=== PATIENT | female | born 1965 | race Caucasian/White ===

== ENCOUNTER → 2016-10-02 | Outpatient (CLI) | payer OTHER ==
[~2016-10-02] MED LIST: BUPR-79 PO; CALCTAB7 PO; COEN1CAP7 PO; FROV2.5T5 PO; LACTCAP3 PO; MULT-513 PO; NYSTCRE32 TD; RIZA10TA19 PO; TRAM-10 PO; [UNRECOGNIZED DRUG - OTHER] PO
[2016-10-02 11:07] LABS: CHOLESTEROL/HDL RATIO 2.4
== END | disposition home or self-care (01) ==
LOC: C.LABBC 09:08
PROVIDERS: ATTEND Family Medicine
DX: Z13.1 Encounter for screening for diabetes mellitus (principal); Z13.220 Encounter for screening for lipoid disorders

== ENCOUNTER → 2016-10-29 | Outpatient (CLI) | payer OTHER ==
--- NOTE | 2016-10-29 08:33 | DIAGNOSTIC IMAGING REPORT ---
RIGHT THUMB RADIOGRAPHS CLINICAL HISTORY: Right thumb pain. COMPARISON: None FINDINGS: Alignment of the right thumb is anatomic. No fracture or suspicious osseous lesion is identified. No erosions are identified. There is mild joint space narrowing and osteophytosis of the right first carpometacarpal joint. There is also mild osteoarthritis of the right first metacarpophalangeal joint. Note is made of a 5 mm bony excrescence arising from the lateral aspect of the distal right radius. IMPRESSION: 1. Mild osteoarthritis of the carpometacarpal and metacarpophalangeal joints of the right thumb. 2. No acute fracture. 3. 5 mm bony excrescence arising from the lateral aspect of the distal right radius which could reflect sequela of old injury or a benign osteochondroma. Electronically signed by: Mateo Gould M.D. 10/29/2016 8:31 AM Dictated Date/Time: 10/29/2016 8:27 AM
--- NOTE | 2016-10-29 08:34 | DIAGNOSTIC IMAGING REPORT ---
LEFT ELBOW 3 VIEWS CLINICAL HISTORY: Elbow pain. Degenerative joint disease. FINDINGS: 3 views of the left elbow are obtained. No prior studies are available for comparison at the time of dictation. The skeletal structures are osteopenic. No fracture is seen. A joint effusion is noted. Bony overgrowth with large osteophytes is seen along the anterior and posterior aspect of the joint space on the lateral view. There is bony fusion of the proximal radius and ulna. Large spurs arise from the radial head. Spurring is also seen along both the medial and lateral aspect of the joint space. The overlying soft tissues are within normal limits. IMPRESSION: 1. Osteopenia, arthritic change, and bony fusion of the proximal radius and ulna as above. 2. No acute fracture is identified. 3. There is a joint effusion. This is likely on a degenerative basis if there is no history of trauma. Electronically signed by: Matthew Royal M.D. 10/29/2016 8:32 AM Dictated Date/Time: 10/29/2016 8:30 AM
== END | disposition home or self-care (01) ==
LOC: C.RAD 08:10
PROVIDERS: ATTEND Orthopaedic Surgery Sports Medicine
DX: M25.522 Pain in left elbow (principal); M79.645 Pain in left finger(s)

== ENCOUNTER → 2016-12-15 | Outpatient (CLI) | payer OTHER ==
--- NOTE | 2016-12-15 15:49 | DIAGNOSTIC IMAGING REPORT ---
CERVICAL WITHOUT CONTRAST HISTORY: Cervical radiculopathy CERVICAL SPINE PAIN TECHNIQUE: Multiplanar multisequence MRI of the cervical spine was performed without the use of contrast. COMPARISON STUDY: 01/15/2013 FINDINGS: Moderate reversal of the normal cervical curvature consistent with muscular spasm. Degenerative disc changes throughout considered similar. Persistent minimal grade 1 anterolisthesis C4 on C5 as estimated at 3 mm. This is unchanged. Sagittal images again suggest posterior bulging disc at C3-C4, C5-C6, and C6-C7. Signal characteristics of the cervical cord remain unremarkable. C2-C3: No significant central canal or neural foraminal narrowing. No change in the prior study C3-C4: Broad-based bulging disc showing contact with the anterior cervical cord. This is unchanged. Moderate multifactorial narrowing of the left as well as right neuroforamina at this site considered slightly progressive from the prior exam. C4-C5: Broad-based is bulge similar compared to the prior study. Moderate osteophytic narrowing of the left and to lesser extent right neural foramina also unchanged. C5-C6: Mild broad-based bulging disc/mild broad-based disc herniation similar compared to the prior study. Minimal impact anterior cervical cord. Significant narrowing of the neuroforamina bilaterally similar to and are slightly progressive from the prior exam. C6-C7: Broad-based central disc herniation with mild impact anterior cervical cord. Mild narrowing left neuroforamina. This level is unchanged from the prior study. C7-T1: No significant central canal or neural foraminal narrowing. No change in the prior exam. IMPRESSION: 1. Degenerative disc change throughout the entire cervical region slightly progressive from the prior study. 2. Persistent reversal of the normal cervical curvature consistent with muscular spasm. 3. Unchanged grade 1 anterolisthesis C4 on C5 felt to be secondary to degenerative changes of posterior elements. 4. Broad-based bulging disc C3-C4 with mild narrowing of the neuroforamina bilaterally. This is slightly progressive from the prior exam. 5. Broad-based bulging discs/mild broad-based disc herniations C4-C5 and C5-C6 similar compared to the prior study. Narrowing of the neuroforamina slightly progressive at both levels compared to the prior study. 6. Broad-based central disc herniation C6-C7 unchanged from the prior study The above report was generated using voice recognition software. It may contain grammatical, syntax or spelling errors. Electronically signed by: Cihdi Rangel M.D. 12/15/2016 3:48 PM Dictated Date/Time: 12/15/2016 3:37 PM
== END | disposition home or self-care (01) ==
LOC: C.MRI 14:30
PROVIDERS: ATTEND Orthopaedic Surgery Orthopaedic Surgery of the Spine
DX: M50.31 Other cervical disc degeneration, high cervical region (principal); M50.321 Other cervical disc degeneration at C4-C5 level; M50.322 Other cervical disc degeneration at C5-C6 level; M50.323 Other cervical disc degeneration at C6-C7 level; M43.12 Spondylolisthesis, cervical region; M50.21 Other cervical disc displacement, high cervical region; M50.221 Other cervical disc displacement at C4-C5 level; M50.222 Other cervical disc displacement at C5-C6 level; M50.223 Other cervical disc displacement at C6-C7 level

== ENCOUNTER → 2017-09-14 | Outpatient (CLI) | payer OTHER | END | disposition home or self-care (01) | LOC: C.PAPS 17:48 | PROVIDERS: ATTEND Obstetrics & Gynecology | DX: Z12.4 Encounter for screening for malignant neoplasm of cervix (principal); R87.616 Satisfactory cervical smear but lacking transformation zone ==

== ENCOUNTER → 2017-09-14 | Outpatient (CLI) | payer OTHER | END | disposition home or self-care (01) | LOC: C.LAB1850 15:33 | PROVIDERS: ATTEND Obstetrics & Gynecology | DX: Z11.3 Encounter for screening for infections with a predominantly sexual mode of transmission (principal); Z11.4 Encounter for screening for human immunodeficiency virus [HIV]; Z11.59 Encounter for screening for other viral diseases ==